=== PATIENT | male | born 1980 | race Caucasian/White ===

== ENCOUNTER → 2017-10-06 13:42 | Outpatient (REF) | payer BC, SELFPAY ==
[2017-10-06 18:28] LABS: Basophils # 0.1 K/mm3 (0-0.2); Basophils % 0.7 % (0.1-2.0); Eosinophils # 0.4 K/mm3 (0.0-0.4); Eosinophils % 3.8 % (0.1-12.0); Hematocrit 43.3 % (42.0-52.0); Hemoglobin 14.3 g/dL (14.1-18.0); Lymphocytes % 21.7 K/mm3 (10-50); Mean Corpuscular Hemoglobin 31.4 pg (27.0-31.2); Mean Corpuscular Volume 95.2 fl (80-94); Mean Platelet Volume 8.8 fl (7.4-10.4); Monocytes # 0.3 K/mm3 (0.1-1.0); Monocytes % 3.4 % (1.7-9.3); Neutrophils # 6.6 K/mm3 (1.8-7.8); Neutrophils % 70.4 % (37.0-80.0); Platelet Count 321 K/mm3 (142-424); Red Blood Count 4.55 M/mm3 (4.60-6.20); Red Cell Distribution Width 12.1 % (11.5-17.5); White Blood Count 9.3 K/mm3 (4.8-10.8)
[2017-10-06 18:38] LABS: Alanine Aminotransferase 57 U/L (12-78); Albumin Level 4.4 gm/dL (3.4-5.0); Albumin/Globulin Ratio 1.3 (1.1-1.8); Alkaline Phosphatase 111 U/L (46-116); Anion Gap 12.1 mEq/L (5-15); Aspartate Amino Transferase 21 U/L (15-37); Bilirubin,Total 0.4 mg/dL (0.2-1.0); Blood Urea Nitrogen 11 mg/dL (7-18); Calcium 9.1 mg/dL (8.5-10.1); Carbon Dioxide 28 mmol/L (21.0-32.0); Chloride 104 mmol/L (98-107); Chol/HDL Ratio 5.1 (1-3.5); Cholesterol 188 mg/dL (140-200); Creatinine,Serum 0.94 mg/dL (0.70-1.30); Estimated Glomerular Filt Rate 89 ml/min (>60); GFR (African American) 108 ML/MIN (>60); Globulin 3.3 gm/dl (1.3-3.2); Glucose 108 mg/dL (74-106); HDL Cholesterol 37 mg/dL (27-67); LDL Cholesterol 120 mg/dL (0-130); Potassium 4.1 mmoL/L (3.5-5.1); Sodium 140 mmol/L (136-145); Total Protein,Serum 7.7 gm/dL (6.4-8.2); Triglycerides 154 mg/dL (30-200); VLDL Cholesterol 31 mg/dL (0-40)
[2017-10-08 11:23] LABS: Hep A Ab, IgM Negative (Negative); Hepatitis B Core Antibody IgM Negative (Negative); Hepatitis B Surface Antigen Negative (Negative)
[2017-10-09 13:19] LABS: Hepatitis C Antibody 0.1 s/co ratio (0.0-0.9); Prostate Specific Ag 1.2 ng/mL (0.0-4.0); Vitamin D 25 Hydroxy 22.8 ng/mL (30.0-100.0)
== END ==
LOC: LAB 13:42
PROVIDERS: Visit Provider Nurse Practitioner Family
DX: R10.9 Unspecified abdominal pain (principal); R19.7 Diarrhea, unspecified; R19.00 Intra-abdominal and pelvic swelling, mass and lump, unspecified site
CPT/HCPCS: 80053; 80061; 80074; 82652; 84153; 84154; 84436; 84443; 85025

== ENCOUNTER → 2017-10-19 07:47 | Outpatient (CLI) | payer BC, SELFPAY ==
--- NOTE | 2017-10-19 07:50 | US_ITS ---
US abdomen complete HISTORY: Right upper quadrant pain ITS.REASON: mass above belly button ORDERING PHYSICIAN: Glo Ugalde PATIENT AGE: 37 years COMPARISON: None FINDINGS: PANCREAS:Unremarkable. No obvious mass or abnormal fluid collection. No ductal dilatation LIVER:No focal liver lesions demonstrated. Homogeneous echogenicity. No intrahepatic biliary ductal dilatation evident RIGHT KIDNEY:Unremarkable. Normal size and echogenicity. No hydronephrosis LEFT KIDNEY:Unremarkable. No hydronephrosis. Normal size and echogenicity. GALLBLADDER:There are multiple gallstones present with gallbladder filled with stones with wall echo shadow sign. No pericholecystic fluid or biliary dilatation. No obvious gallbladder wall thickening. AORTA:No evidence of aneurysmal dilatation. SPLEEN:Unremarkable. Normal size and echogenicity ASCITES:None demonstrated. The palpable abnormality in the umbilical region appears to represent a abdominal wall hernia with an abdominal wall defect measuring up to 8 mm with fat within the hernia. No obvious peristalsing bowel within the hernia IMPRESSION: 1. Cholelithiasis. Wall echo shadow sign consistent with gallbladder filled with stones 2. Small ventral abdominal wall hernia containing fat. This is reported to be above the umbilicus. CT may confirm if clinically warranted
== END ==
PROVIDERS: PCP Nurse Practitioner Family; Visit Provider Nurse Practitioner Family
DX: R10.84 Generalized abdominal pain (principal); R19.00 Intra-abdominal and pelvic swelling, mass and lump, unspecified site
CPT/HCPCS: 76700

== ENCOUNTER → 2017-11-18 08:11 | Outpatient (CLI) | payer BC, SELFPAY ==
[2017-11-18 09:07] LABS: Alanine Aminotransferase 122 U/L (12-78); Albumin/Globulin Ratio 1.2 (1.1-1.8); Alkaline Phosphatase 161 U/L (46-116); Anion Gap 10.2 mEq/L (5-15); Aspartate Amino Transferase 70 U/L (15-37); Bilirubin,Total 0.6 mg/dL (0.2-1.0); Blood Urea Nitrogen 11 mg/dL (7-18); Calcium 8.9 mg/dL (8.5-10.1); Carbon Dioxide 32 mmol/L (21.0-32.0); Chloride 102 mmol/L (98-107); Creatinine,Serum 0.86 mg/dL (0.70-1.30); Estimated Glomerular Filt Rate 99 ml/min (>60); GFR (African American) 120 ML/MIN (>60); Globulin 3.3 gm/dl (1.3-3.2); Glucose 103 mg/dL (74-106); Potassium 5.2 mmoL/L (3.5-5.1); Sodium 139 mmol/L (136-145); Total Protein,Serum 7.3 gm/dL (6.4-8.2)
[2017-11-18 09:19] LABS: Basophils # 0.1 K/mm3 (0-0.2); Basophils % 1.2 % (0.1-2.0); Eosinophils # 0.3 K/mm3 (0.0-0.4); Eosinophils % 5.8 % (0.1-12.0); Hematocrit 45.3 % (42.0-52.0); Hemoglobin 14.9 g/dL (14.1-18.0); Lymphocytes % 35.3 K/mm3 (10-50); Mean Corpuscular HGB Conc 32.8 g/dL (31.8-35.4); Mean Corpuscular Hemoglobin 31.8 pg (27.0-31.2); Mean Corpuscular Volume 96.8 fl (80-94); Mean Platelet Volume 7.3 fl (7.4-10.4); Monocytes # 0.3 K/mm3 (0.1-1.0); Monocytes % 4.5 % (1.7-9.3); Neutrophils # 3.1 K/mm3 (1.8-7.8); Neutrophils % 53.1 % (37.0-80.0); Platelet Count 302 K/mm3 (142-424); Red Blood Count 4.68 M/mm3 (4.60-6.20); Red Cell Distribution Width 12.1 % (11.5-17.5); White Blood Count 5.8 K/mm3 (4.8-10.8)
== END ==
PROVIDERS: PCP Emergency Medicine; Visit Provider Surgery
DX: K43.9 Ventral hernia without obstruction or gangrene (principal)
CPT/HCPCS: 36415; 80053; 85025

== ENCOUNTER → 2017-11-25 08:18 | Outpatient (CLI) | payer BC, SELFPAY ==
[2017-11-25 10:46] LABS: Alanine Aminotransferase 102 U/L (12-78); Alkaline Phosphatase 165 U/L (46-116); Aspartate Amino Transferase 41 U/L (15-37); Bilirubin,Direct 0.1 mg/dL (0.0-0.2); Bilirubin,Indirect 0.6 mg/dL (0.0-0.9); Bilirubin,Total 0.7 mg/dL (0.2-1.0); Total Protein,Serum 7.5 gm/dL (6.4-8.2)
== END ==
PROVIDERS: PCP Emergency Medicine; Visit Provider Surgery
DX: K43.9 Ventral hernia without obstruction or gangrene (principal)
CPT/HCPCS: 36415; 80076

== ENCOUNTER → 2021-02-27 08:32 | Outpatient (CLI) | payer OTHER, SELFPAY | PROVIDERS: Visit Provider Nurse Practitioner | DX: U07.1 COVID-19 (principal) | CPT/HCPCS: C9803; U0003; U0005 ==

== ENCOUNTER 2023-03-27 19:55 | Outpatient (CLI) | payer OTHER, SELFPAY ==
[2023-03-27 18:23] LABS: Eosinophils # 0.2 K/mm3 (0.0-0.4); Eosinophils % 4.9 % (0.1-12.0); Hemoglobin 16.6 g/dL (14.1-18.0); Lymphocytes # 0.8 K/mm3 (0.7-4.5); Lymphocytes % 20.3 % (10-50); Mean Corpuscular HGB Conc 34.6 g/dL (31.8-35.4); Mean Corpuscular Hemoglobin 35.2 pg (27.0-31.2); Mean Corpuscular Volume 101.7 fl (80-94); Mean Platelet Volume 8.3 fl (7.4-10.4); Monocytes # 0.4 K/mm3 (0.1-1.0); Monocytes % 9.7 % (1.7-9.3); Neutrophils # 2.6 K/mm3 (1.8-7.8); Platelet Count 247 K/mm3 (142-424); Red Blood Count 4.72 M/mm3 (4.60-6.20); Red Cell Distribution Width 12.6 % (11.5-17.5); White Blood Count 4.1 K/mm3 (4.8-10.8)
[2023-03-27 18:29] LABS: Alanine Aminotransferase 243 U/L (12-78); Albumin Level 4.7 g/dl (3.5-5.0); Albumin/Globulin Ratio 1.4 (1.1-1.8); Alkaline Phosphatase 157 U/L (38-126); Amylase 46 U/L (30-110); Aspartate Amino Transferase 229 U/L (17-59); Bilirubin,Total 1.4 mg/dl (0.2-1.3); Blood Urea Nitrogen 10 mg/dl (9-20); Calcium 9.6 mg/dl (8.4-10.2); Carbon Dioxide 30 mmol/L (22.0-30.0); Chloride 101 mmol/L (98-107); Chol/HDL Ratio 4.6 (1-3.5); Cholesterol 250 mg/dl (140-200); Estimated Glomerular Filt Rate 91 ml/min (>60); GFR (African American) 110 ML/MIN (>60); Globulin 3.3 g/dL (1.3-3.2); Glucose 105 mg/dl (74-100); HDL Cholesterol 54 mg/dl (40-60); Lipase 62 U/L (23-300); Sodium 138 mmol/L (136-145); Triglycerides 194 mg/dl (30-150); VLDL Cholesterol 39 mg/dL (0-40)
[2023-03-27 18:40] LABS: Direct LDL Cholesterol 151.49 mg/dL (100-129)
[2023-03-27 18:47] LABS: 25-OH Vitamin D, Total 18.7 ng/mL (30-100)
[2023-03-27 18:50] LABS: Free T4 (Free Thyroxine) 0.95 ng/dl (0.78-2.19)
[2023-03-27 19:00] LABS: Thyroid Stimulating Hormone 1.61 uIU/mL (0.465-4.68)
[2023-03-27 19:35] LABS: Folate 6.75 ng/mL; Vitamin B12 464 pg/mL (239-931)
[2023-03-27 20:04] LABS: Hemoglobin A1C 4.6 % (4.0-6.0)
[2023-03-31 07:41] LABS: HBsAg Screen Negative (Negative); HCV Ab Non Reactive (Non Reactive); Hep A Ab, IGM Negative (Negative); Hep B Core Ab, IgM Negative (Negative)
== END 2023-03-27 23:59 ==
LOC: LAB.DROPOF 19:56
PROVIDERS: PCP Student in an Organized Health Care Education/Training Program; Visit Provider Student in an Organized Health Care Education/Training Program
DX: R10.9 Unspecified abdominal pain (principal); R11.2 Nausea with vomiting, unspecified; R19.7 Diarrhea, unspecified; E55.9 Vitamin D deficiency, unspecified; R73.09 Other abnormal glucose; Z79.899 Other long term (current) drug therapy
CPT/HCPCS: 80053; 80061; 80074; 82150; 82306; 82607; 82746; 83036; 83690; 84439; 84443; 85025

== ENCOUNTER 2023-03-28 10:50 | Outpatient (CLI) | payer OTHER, SELFPAY ==
[2023-03-28 11:00] LABS: Adenovirus F 40/41, stool Not Detected (NotDetected); Campylobacter Not Detected (NotDetected); Clostridium Difficile A/B, PCR Not Detected (NotDetected); Cryptosporidium Not Detected (NotDetected); Cyclospora Cayetanesis Not Detected (NotDetected); Entamoeba histolytica Not Detected (NotDetected); Enteroaggregative E coli Not Detected (NotDetected); Enterotoxigenic E coli Not Detected (NotDetected); Giardia lamblia Not Detected (NotDetected); Norovirus Not Detected (NotDetected); Plesimonas Shigalloides, PCR Not Detected (NotDetected); Rotavirus A Not Detected (NotDetected); Salmonella, PCR Not Detected (NotDetected); Sapovirus Not Detected (NotDetected); Shiga-like toxin E coli Not Detected (NotDetected); Shigella Enterovasive E coli Not Detected (NotDetected); Vibrio Cholerae Not Detected (NotDetected); Vibrio, PCR Not Detected (NotDetected)
[2023-03-31 08:21] LABS: Astrovirus Detected (NotDetected)
[2023-03-31 08:23] LABS: Enteropathogenic E coli Detected (NotDetected); Yersinia Entercolitica, PCR Detected (NotDetected)
== END 2023-03-28 23:59 ==
LOC: LAB.DROPOF 10:50
PROVIDERS: PCP Physician Assistant; Visit Provider Student in an Organized Health Care Education/Training Program
DX: R10.9 Unspecified abdominal pain (principal); R11.2 Nausea with vomiting, unspecified; R19.7 Diarrhea, unspecified; A08.32 Astrovirus enteritis; A04.0 Enteropathogenic Escherichia coli infection; A04.6 Enteritis due to Yersinia enterocolitica
CPT/HCPCS: 87507

== ENCOUNTER 2023-06-11 09:31 | Outpatient (CLI) | payer OTHER, SELFPAY ==
[2023-06-11 11:18] LABS: Alanine Aminotransferase 241 U/L (12-78); Albumin Level 4.9 g/dl (3.5-5.0); Albumin/Globulin Ratio 1.8 (1.1-1.8); Alkaline Phosphatase 92 U/L (38-126); Anion Gap 12.2 mEq/L (5-15); Aspartate Amino Transferase 186 U/L (17-59); Bilirubin,Total 1.4 mg/dl (0.2-1.3); Blood Urea Nitrogen 9 mg/dl (9-20); Calcium 9.9 mg/dl (8.4-10.2); Carbon Dioxide 26 mmol/L (22.0-30.0); Chloride 104 mmol/L (98-107); Estimated Glomerular Filt Rate 105 ml/min (>60); GFR (African American) 126 ML/MIN (>60); Globulin 2.7 g/dL (1.3-3.2); Glucose 101 mg/dl (74-100); Potassium 4.2 mmoL/L (3.5-5.1); Sodium 138 mmol/L (136-145); Total Protein,Serum 7.6 g/dl (6.3-8.2)
[2023-06-17 16:10] LABS: Fibrosis Score 0.39; Fibrosis Stage F1-F2
[2023-06-17 16:11] LABS: NASH Grade N3-SEVERE NASH; NASH Score 0.95; Steatosis Grade S2-S3; Steatosis Score 0.89
[2023-06-17 16:12] LABS: Alpha 2-Macroglobulins, Qn 145; Apolipoprotein A-1 163; Haptoglobin 141
[2023-06-17 16:13] LABS: ALT (SGPT) P5P 228; AST (SGOT) P5P 170; GGT 537
[2023-06-17 16:14] LABS: Cholesterol, Total 258; Glucose 100; Triglycerides 215
== END 2023-06-11 23:59 | disposition home or self-care (01) ==
LOC: LAB 09:32
PROVIDERS: PCP Physician Assistant; Visit Provider Nurse Practitioner
DX: E66.9 Obesity, unspecified (principal); R94.5 Abnormal results of liver function studies; F10.11 Alcohol abuse, in remission; K76.0 Fatty (change of) liver, not elsewhere classified; Z68.34 Body mass index [BMI] 34.0-34.9, adult
CPT/HCPCS: 36415; 80053